=== PATIENT | male | born 1945 | race Caucasian/White ===

== ENCOUNTER 2016-09-22 08:09 | Inpatient (IN) | payer OTHER ==
--- NOTE | 2016-09-16 14:18 | HP ---
HISTORY AND PHYSICAL: DATE OF ADMISSION/SURGERY: 09/22/16 DATE OF OFFICE VISIT: 09/16/16 PROCEDURE: Left total hip replacement. CHIEF COMPLAINT: Left hip pain. HISTORY OF PRESENT ILLNESS: The patient is a very pleasant 71-year-old gentleman with a history of bilateral hip pain, left worse than right due to severe osteoarthritis, and has failed conservative treatments such as physical therapy, NSAIDs, and activity restrictions, and the patient has elected to undergo a left total hip replacement by Dr. Bernal on 09/22/16. PAST MEDICAL HISTORY: 1. Asthma. 2. Chronic back pain. 3. History of sciatica. 4. Generalized osteoarthritis. 5. Morbid obesity. 6. Hypertension. 7. Elevated cholesterol. 8. Obstructive sleep apnea. PAST SURGICAL HISTORY: 1. Bilateral knee surgery as a child, unknown surgical procedure. 2. Nasal surgery. 3. Tonsils and adenoids. MEDICATIONS: 1. Lyrica 50 mg, one tablet by mouth b.i.d. 2. Proventil 108 mcg/ACT, inhaled 4 puffs by mouth every 3 hours as needed for worsening asthma. 3. Multivitamin 1 tablet daily. 4. Cranberry supplementation 400 mg 1 tablet by mouth twice daily. 5. Coenzymes Q10, 30 mg 1 tablet by mouth daily. 6. Magnesium 500 mg 1 tablet by mouth daily. 7. Melatonin 10 mg 1 tablet by mouth at bedtime. 8. Tylenol 325 mg 1 tablet p.o. p.r.n. 9. Vitamin D3 1000 international units 1 tablet by mouth daily. 10. Magnesium 65 mg tablet 300 mg per day orally. 11. Pulmicort inhaler 180 mcg/ACT, 2 puffs twice daily. 12. Norvasc 5 mg p.o. daily. 13. Crestor 10 mg 1 tablet by mouth daily. 14. Potassium 99 mg once daily. 15. Aspirin 81 mg 1 tablet by mouth daily. 16. Protonix 20 mg 1 tablet by mouth p.r.n. 17. Celebrex 100 mg p.o. b.i.d. p.r.n. ALLERGIES: SULFA allergy. Denies any mineral allergy. FAMILY MEDICAL HISTORY: Mother with CHF. Father with diabetes type 2. SOCIAL HISTORY: No tobacco use. No alcohol use. 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 Living with his who is a nurse. REVIEW OF SYSTEMS: General: Negative for fevers, chills, night sweats. No difficulty with anesthesia other than having one episode of spinal headache, status post epidural. HEENT: Negative for headache, lightheadedness or syncopal episodes. Integument: Negative for abrasions, lesions, open wounds or sores. Cardiothoracic: Negative for chest pain, palpitations or edema. Positive for hypertension. Positive for elevated cholesterol. Pulmonary: Negative for shortness of breath, chronic cough or COPD. Positive for asthma, under control, recent exacerbation with sinus infection. GI: Negative for nausea, vomiting, constipation, diarrhea or GERD. : Negative of nocturia, urinary frequency or urgency. No history of UTI or kidney problems. Musculoskeletal: Positive for chronic back pain, positive for left hip pain. Neuro: Negative for paresthesias or numbness currently, does have a history sciatica in the past. No history of seizure, stroke or epilepsy. Endocrine: Negative for diabetes. Negative for thyroid disease. Hematologic: Negative for easy bruising, anemia or excessive bleeding. No history of DVTs or PEs. Infectious Disease: No history of MRSA, hepatitis C or HIV. PHYSICAL EXAMINATION GENERAL: Well appearing, in no acute distress. Alert and oriented x3. Appropriate mood and affect. VITAL SIGNS: Height 72 inches, weight 250 pounds, pulse 58, blood pressure 153/ 81, temperature 97.4. BMI 33.9. HEENT: Normocephalic, atraumatic. EOMI. PULMONARY: Lungs clear to auscultation bilaterally. No crackles, rhonchi or wheezes. CARDIAC: Regular rate and rhythm. No murmurs, gallops or rubs. No edema. Mild bradycardia. Positive S2 split. ABDOMEN: Soft, nontender, nondistended. Obese. Negative CVA tenderness bilaterally. MUSCULOSKELETAL: Mild edema of bilateral lower extremities, posterior tibial pulses 2+ bilaterally. Negative Michael sign bilaterally. Mildly antalgic gait favoring the left-hand side. NEUROLOGIC: Alert and oriented x3. Cranial nerves grossly intact. Sensation intact to light touch in bilateral lower extremities. DIAGNOSTIC STUDIES: Left hip and pelvic x-rays dated 05/18/16. IMPRESSION: The patient is a very pleasant 71-year-old gentleman who presents today for routine history and physical prior to undergoing an elective left total hip replacement. The patient was seen by Dr. Frederick in preoperative evaluation and his states that he has been cleared by him. He had lab work performed which is within normal limits, as well as a chest x-ray and EKG, as well as a nuclear stress test. The patient would like to recover at home if at all possible. Prescriptions for Coumadin, Percocet, and Colace were sent to the patient's pharmacy for postoperative pain and DVT management. Multiple questions were asked by the patient and his and they were all answered. He will follow up with us if any further questions arise. The patient has a CPAP at home and they will bring this to the hospital as well. NIKKI DOTSON [id number]/[facility] #: [id number] MTDGabriela
[~2016-09-22 08:09] MED LIST: Buffered Lidocaine 0.9% SYRIN* 5 ML/SYR SYRINGE INTRADERM ONE
[2016-09-22] MEDS ORDERED: ceFAZolin 2 GM PREMIX(*) 2 GM/50 ML BAG IVPB ONE (08:14)
[2016-09-22] MEDS ORDERED: Buffered Lidocaine 0.9% SYRIN* 5 ML/SYR SYRINGE ONE (08:14)
[2016-09-22] MEDS ORDERED: Levalbuterol 1.25MG/0.5ML NEB ONE (08:14)
[2016-09-22] MEDS ORDERED: Morphine PF AMP (0.5MG/ML)* 5 MG/10 ML AMP ONE (08:57)
[2016-09-22] MEDS ORDERED: Midazolam* 1 MG/ML 5 ML VIAL (5 MG) ONE ×2 (08:57→11:16)
[2016-09-22] MEDS ORDERED: Ondansetron INJ* 2 MG/ML VIAL ONE ×2 (08:57→13:41)
[2016-09-22] MEDS ORDERED: KETAMINE HCL* 50 MG/ML 10 ML VIAL ONE (08:57)
[2016-09-22] MEDS ORDERED: Propofol* 10 MG/ML 20 ML BTL IV PUSH ONE (08:57)
[2016-09-22] MEDS ORDERED: Bupivacaine 0.5% SDV PF* 30 ML VIAL ONE (08:58)
[2016-09-22] MEDS ORDERED: Phenylephrine INJ* 10 MG/ML 1 ML VIAL (10 MG) ONE (09:00)
[2016-09-22] MEDS ORDERED: Levalbuterol 0.63MG/3ML NEB INH ONE (09:08)
[2016-09-22] MEDS ORDERED: Glycopyrrolate IV* 0.2 MG/ML 1 ML VIAL ONE (10:31)
[2016-09-22] MEDS ORDERED: fentaNYL* 50 MCG/ML 2 ML VIAL (100 MCG VIAL) IV PRN (11:11)
[2016-09-22] MEDS ORDERED: Naloxone* 0.4 MG/ML 1 ML VIAL IV PRN (11:11)
[2016-09-22] MEDS ORDERED: Ondansetron INJ* 2 MG/ML VIAL IV PRN (11:11)
[2016-09-22] MEDS ORDERED: Nalbuphine* 20 MG/ML 1 ML VIAL IV PRN ×2 (11:11)
[2016-09-22] MEDS ORDERED: oxyCODONE/Acetamin 5/325 MG* TAB PO PRN ×2 (11:11)
[2016-09-22] MEDS ORDERED: Atropine 1MG/ML INJ* 1 ML VIAL ONE (11:35)
[2016-09-22] MEDS ORDERED: Ropivacaine* 300 MG in NS 0.9% 250 ML* 240 ML EPIDURAL SCH (12:00)
--- NOTE | 2016-09-22 12:16 | RAD ---
INDICATION: Portable crosstable lateral of the left hip during left total hip arthroplasty TECHNIQUE: Single AP view acquired intraoperatively of the left hip. FINDINGS: This limited radiographic view depicts the acetabular pole of the hip prosthesis to be anatomically aligned. The femoral shaft component is located in the proximal femoral medullary canal. The prosthetic femoral head has not yet been attached. IMPRESSION: Intraoperative findings as described above.
[2016-09-22] MEDS ORDERED: Acetaminophen TAB* 325 MG PO PRN (12:18)
[2016-09-22] MEDS ORDERED: Furosemide TAB* 20 MG PO PRN (12:37)
[2016-09-22] MEDS ORDERED: Diazepam TAB(*) 5 MG PO PRN (12:37)
[2016-09-22] MEDS ORDERED: Albuterol HFA INHALER* 8 gm MDI INH PRN ×2 (12:37)
[2016-09-22] MEDS ORDERED: Omeprazole CAP* 20 MG PO PRN (12:37)
--- NOTE | 2016-09-22 13:57 | RAD ---
HISTORY: Postop left hip arthroplasty COMPARISONS: None VIEWS: 3, Frontal view of the pelvis with frontal and frog-leg views of the left hip FINDINGS: BONE DENSITY: Normal. BONES: The patient is status post left hip arthroplasty. There is no hardware failure or osteolysis. JOINTS: The patient is status post left hip arthroplasty. There is osteoarthritis of the right hip and SI joints ALIGNMENT: There is no dislocation. SOFT TISSUES: Unremarkable. OTHER FINDINGS: Degenerative changes are noted of the spine IMPRESSION: STATUS POST LEFT HIP ARTHROPLASTY
[2016-09-22] MEDS ORDERED: Scopolamine 1.5 mg* PATCH ONE (14:13)
[2016-09-22] MEDS ORDERED: Nalbuphine* 20 MG/ML 1 ML VIAL ONE ×2 (14:13)
[2016-09-22] MEDS ORDERED: Scopolamine 1.5 mg* PATCH TRANSDERM SCH (15:00)
[2016-09-22] MEDS ORDERED: DiMENhydriNATE IV* 50 MG/ML VIAL IV PUSH PRN (15:58)
[2016-09-22] MEDS ORDERED: DiMENhydriNATE IV* 50 MG/ML VIAL ONE (16:01)
[2016-09-22] MEDS ORDERED: Warfarin TAB(*) 6 MG PO ONE (17:00)
[2016-09-22] MEDS ORDERED: Mometasone 220 MCG MDI INH PRN (18:00)
[2016-09-22] MEDS: Atorvastatin* 20 MG TAB PO SCH (18:06)
[2016-09-22] MEDS: ceFAZolin VIAL(*) 1 GM in NS 0.9% 50 ML* 50 ML IVPB SCH (18:08)
[2016-09-22] MEDS: Docusate CAP* 100 MG PO SCH (20:52)
[2016-09-22] MEDS ORDERED: Pregabalin CAP(*) 50 MG PO SCH (21:00)
[2016-09-22] MEDS ORDERED: NATURAL PRODUCTS PO SCH (21:00)
[2016-09-22] MEDS ORDERED: NON FORMULARY MED* (Melatonin [Melatonin] 10 MG) PO SCH (21:00)
--- NOTE | 2016-09-22 23:22 | CONS ---
CC: Dr. Bernal; Dr. Frederick* CONSULTATION REPORT: DATE OF CONSULT: 09/22/16 PRIMARY CARE PROVIDER: Dr. Frederick. ATTENDING PHYSICIAN WHILE IN THE HOSPITAL: Dr. oJvani Cortez (report dictated by Shree Madison NP). REASON FOR MEDICAL CONSULTATION: Medical management of comorbid medical conditions. REQUESTING PHYSICIAN FOR CONSULT: Dr. Bernal HISTORY OF PRESENT ILLNESS: Mr. Winters is a 71-year-old male patient who has been complaining of left hip pain for some time. He has been failing conservative therapy and management. He presented to the orthopedic services in the outpatient setting, was evaluated, and he was failing conservative therapy and it was felt that he would benefit from a total hip replacement, which he underwent today. He states that he is feeling well with the exception that he feels like the room is spinning and he feels very nauseous. He denies having any chest pain or shortness of breath. Denies having any abdominal pain. He states his pain in the left hip is controlled. He denies having any numbness or tingling in the lower extremities. He denies any shortness of breath. He does carry a history of hypertension, chronic back pain, asthma, SHANIQUE , and hyperlipidemia. Because of this, we were asked to evaluate in consult. He did have a stress test preoperatively, which was a normal stress test under the care of Dr. Riggs. PAST SURGICAL HISTORY: 1. He has had knee surgery. 2. Nasal surgery. 3. Tonsillectomy. HOME MEDICATIONS: According to the preop list include: 1. Celebrex 200 mg p.o. b.i.d. 2. Norvasc 5 mg a day. 3. Crestor 10 mg p.o. daily. 4. Lyrica 75 mg p.o. t.i.d. 5. Potassium 10 mEq p.o. daily. 6. Protonix 40 mg daily as needed. 7. Osteo Bi-Flex 2 tablets p.o. in the morning. 8. MidNite 1 p.o. at bedtime. 9. Melatonin 10 mg p.o. at bedtime. 10. Magnesium two tablets in the morning. 11. [place]ham one to two tablets every 6 hours as needed. 12. Lasix 20 mg daily as needed. 13. Colace 100 mg p.o. daily. 14. Valium half a tab to a tab at bedtime as needed. 15. Cranberry 400 mg daily. 16. Coenzyme Q10 50 mg daily. 17. Pulmicort 2 puffs inhaled b.i.d. 18. Aspirin 81 mg daily. 19. Ventolin 2 to 4 puffs every 3 hours as needed. 20. Tylenol 650 mg p.o. at bedtime. ALLERGIES TO MEDICATIONS: Include SULFA. FAMILY HISTORY: His mother had a history of CHF. Father had a history of diabetes. SOCIAL HISTORY: He does not smoke. He does not drink. Surrogate decision maker is his . PHYSICAL EXAM: Vital Signs: Blood pressure 136/74 with a pulse of 54, respirations 18, O2 sat 94%, temperature 96.8. General: At this time, Mr. Winters is a 71-year-old male patient, he is sitting in the PACU bed. He does not appear to be in any acute distress. HEENT: Head is atraumatic and normocephalic. Eyes: EOMs are intact. Sclerae anicteric and not pale. Throat : Oral mucosa appears to be moist. No oropharyngeal erythema. Neck: Supple. Heart: Sounds S1 and S2, regular rate and rhythm. No murmurs, rubs, or gallops were appreciated. Lungs: Clear to auscultation bilaterally. Abdomen: Bowel sounds were hypoactive and nontender. Extremities: Pulses are +2 throughout. He is unable to move the lower extremities given the fact he is in a hip adductor pillow, but distal CSM checks are intact bilaterally. Neurologic : The patient is awake. He is alert. He is oriented x3. His floral arranger are equal. He had no gross focal deficits. His skin is intact. He does have an incision to the left hip, which is covered with a dressing and it is clean, dry , and intact. DIAGNOSTIC STUDIES/LAB DATA: His labs preop revealed a WBC of 6.5, RBC of 5.44 , hemoglobin 16.5, hematocrit of 50, and platelets of 151. The INR is 1.0. Chemistries: Sodium of 140, potassium 4.3, chloride of 107, bicarb 28, BUN 23, creatinine 1.04, glucose of 97. Urine preop was obtained, which showed 1+ protein, present squamous epithelial cells, present hyaline cast. He did have a stress test done a couple of weeks ago, which showed no evidence of infarct or ischemia. He did have an EKG preop, showed a sinus bradycardia, rate of 50. No ST elevation or T-wave inversions. He had an echo, which showed an EF of 55% to 60%. He also had a Holter monitor, which did show him bradying down into the 40s at times, and he did have a preop chest x-ray, which showed no active disease. Old medical records were reviewed. ASSESSMENT AND PLAN: Mr. Winters is a 71-year-old male patient coming into the surgical service today to Orthopedics for an elective left total hip. We are asked to evaluate in consult. Recommendations at this point are: 1. Status post left total hip replacement. I will defer the management to Dr. Bernal and her team. 2. Hypertension. Continue the Norvasc. 3. Asthma. Continue p.r.n. inhalers. 4. Chronic back pain. He will on an epidural here and narcotics. I will continue these and just hold his Lyrica until discharge. 5. Arthritis. Continue his current medical regimen. 6. Hyperlipidemia. Continue his Crestor. 7. Obstructive sleep apnea. I would continue CPAP until his first [address] him on continuous pulse oximetry. 8. DVT prophylaxis. I will defer to the primary team. 9. Code status. Full code. 10. Fluids, electrolytes, and nutrition. I would recommend a heart healthy diet. TIME SPENT: Time spent on the consult was 60 minutes, greater than half the time was spent [id number] with the patient obtaining my history and physical, the other half the time was spent going over the plan of care with the patient and implementing the plan of care. I did discuss the plan of care with my attending, Dr. Cortez, who is in agreement. SHREE MADISON, PIYUSH [id number]/[facility] [place] #: [id number] MARIE
[2016-09-23] MEDS: ceFAZolin VIAL(*) 1 GM in NS 0.9% 50 ML* 50 ML IVPB SCH ×2 (01:42→09:40)
[2016-09-23] MEDS: oxyCODONE TAB* 5 MG TAB PO PRN ×3 (05:27→17:05)
[2016-09-23] MEDS ORDERED: Morphine INJ* 2 MG/ML 1 ML SYRINGE IV PRN (06:00)
[2016-09-23] MEDS ORDERED: diPHENhydraMINE IV* 50 MG/ML 1 ml VIAL (BENADRYL) IV PRN (06:00)
[2016-09-23 06:16] LABS: Hematocrit 39 % (42-52); Hemoglobin 13.4 g/dl (14.0-18.0); Mean Corpuscular HGB Conc 34 g/dl (31-36); Mean Corpuscular Hemoglobin 32 pg (27-31); Mean Corpuscular Volume 93 fL (80-94); Mean Platelet Volume 7 um3 (7.4-10.4); Red Blood Count 4.19 10^6/ul (4.0-5.4); Red Cell Distribution Width 14 % (10.5-15); White Blood Count 9.6 10^3/ul (3.5-10.8)
[2016-09-23 06:31] LABS: BUN/Creatinine Ratio 30.6 (8-20); Calcium 8.6 mg/dL (8.6-10.3); EGFR African American 114.6 (>60); EGFR Non-African American 89.1 (>60); Potassium 4.3 mmol/L (3.5-5.0)
--- NOTE | 2016-09-23 06:50 | PN ---
Progress Note - Progress Note Date of Service: 09/23/16 SOAP: Subjective: Pt. is alert, pain well controlled. Objective: LLE - dressing c/d/i. thigh soft, distally +df/pf, full sens lt, 2+ DP pulse. Vital Signs: Temp Pulse Resp BP Pulse Ox 98.3 F 63 18 115/62 99 09/23/16 04:03 09/23/16 04:03 09/23/16 05:27 09/23/16 04:03 09/23/16 04:03 Laboratory Results - last 24 hr 09/23/16 09/23/16 09/23/16 05:52 05:52 05:52 WBC 9.6 RBC 4.19 Hgb 13.4 L Hct 39 L MCV 93 MCH 32 H MCHC 34 RDW 14 Plt Count 122 L MPV 7 L Neut % (Auto) 84.0 H Lymph % (Auto) 6.4 L Hidalgo % (Auto) 9.0 Eos % (Auto) 0.5 Baso % (Auto) 0.1 Absolute Neuts (auto) 8.1 H Absolute Lymphs (auto) 0.6 L Absolute Monos (auto) 0.9 H Absolute Eos (auto) 0.1 Absolute Basos (auto) 0 Absolute Nucleated RBC 0 Nucleated RBC % 0 INR (Anticoag Therapy) 1.14 H Sodium 135 Potassium 4.3 Chloride 105 Carbon Dioxide 27 Anion Gap 3 BUN 26 H Creatinine 0.85 Est GFR ( Amer) 114.6 Est GFR (Non-Af Amer) 89.1 BUN/Creatinine Ratio 30.6 H Glucose 129 H Calcium 8.6 Assessment: 71 yo M pod 1 s/p LTHA Plan: wbat with post hip precautions pt/ot 8 mg coumadin tonight, lovenox this AM plan d/c to home with services.
[2016-09-23] MEDS: Docusate CAP* 100 MG PO SCH ×2 (08:35→20:51)
[2016-09-23] MEDS: amLODIPine TAB* 5 MG PO SCH (08:35)
[2016-09-23] MEDS ORDERED: COENZYME Q10 30 MG PO SCH (09:00)
[2016-09-23] MEDS ORDERED: POTASSIUM CHLORIDE 10 MEQ PO SCH (09:00)
[2016-09-23] MEDS ORDERED: NATURAL PRODUCTS PO SCH (09:00)
[2016-09-23] MEDS ORDERED: CRANBERRY PO SCH (09:00)
[2016-09-23] MEDS ORDERED: Docusate CAP* 100 MG PO SCH (09:00)
[2016-09-23] MEDS ORDERED: oxyCODONE/Acetamin 5/325 MG* TAB PO PRN (11:46)
[2016-09-23] MEDS: oxyCODONE/Acetamin 5/325 MG* TAB PO PRN ×2 (13:01→20:09)
[2016-09-23] MEDS ORDERED: Enoxaparin(*) 30 MG/0.3 ML SYR SUBCUT SCH (15:00)
--- NOTE | 2016-09-23 15:08 | PN ---
Subjective Date of Service: 09/23/16 Interval History: Patient seen and examined at bedside. He is in good spirits, reporting that he has been up with PT. Denies fever/chills, CP, SOB, n/v. Decreased appetite but he feels like he's taken in enough food at this point. Reports adequate pain control with current medication regimen. Family History: Unchanged from Admission Social History: Unchanged from Admission Past Medical History: Unchanged from Admission Objective Active Medications: Acetaminophen (Tylenol Tab*) 650 mg PO Q4H PRN PRN Reason: TEMP > 100 or PAIN Albuterol (Ventolin Hfa Inhaler*) 1 puff INH Q4H PRN PRN Reason: SOB/WHEEZING Amlodipine Besylate (Norvasc Tab*) 5 mg PO QAM [facility] Last Admin: 09/23/16 08:35 Dose: 5 mg Atorvastatin Calcium (Lipitor*) 20 mg PO QPM MELLISSA PRN Reason: Protocol Last Admin: 09/22/16 18:06 Dose: 20 mg Diphenhydramine HCl (Benadryl Iv*) 25 mg IV Q6H PRN PRN Reason: itching Docusate Sodium (Colace Cap*) 100 mg PO BID [facility] Last Admin: 09/23/16 08:35 Dose: 100 mg Enoxaparin Sodium (Lovenox(*)) 30 mg SUBCUT Q24H [facility] Last Admin: 09/23/16 14:33 Dose: 30 mg Lactated Ringer's (Lactated Ringers 1000 Ml Bag*) 1,000 mls @ 100 mls/hr IV PER RATE [facility] Last Admin: 09/23/16 12:07 Dose: 100 mls/hr Mometasone Furoate (Asmanex 220 Mcg Mdi *) 2 puff INH QPM PRN PRN Reason: SOB/WHEEZING Morphine Sulfate (Morphine Inj (Syringe)*) 2 mg IV Q2H PRN PRN Reason: PAIN Omeprazole (Prilosec Cap*) 20 mg PO DAILY PRN PRN Reason: reflux Oxycodone HCl (Roxycodone Tab*) 10 mg PO Q4H PRN PRN Reason: PAIN Last Admin: 09/23/16 09:43 Dose: 10 mg Oxycodone/Acetaminophen (Percocet 5/325 Tab*) 1 tab PO Q3H PRN PRN Reason: PAIN - MODERATE Oxycodone/Acetaminophen (Percocet 5/325 Tab*) 2 tab PO Q3H PRN PRN Reason: PAIN - MODERATE Last Admin: 09/23/16 13:01 Dose: 2 tab Pharmacy Profile Note (Scopolomine Patch Remove*) 1 note PATCH OFF 1500 ONE Stop: 09/25/16 15:01 Pharmacy Profile Note (Coumadin Daily Reminder*) 1 note FOLLOW UP 1700 MELLISSA Last Admin: 09/22/16 18:08 Dose: 1 note Warfarin Sodium (Coumadin Tab(*)) 8 mg PO ONCE@1700 ONE PRN Reason: Protocol Stop: 09/23/16 17:01 Vital Signs 09/22/16 09/22/16 09/22/16 15:15 16:45 17:21 Temperature 96.4 F 97.6 F Pulse Rate 61 61 57 Respiratory 16 15 18 Rate Blood Pressure 131/71 127/81 135/67 (mmHg) O2 Sat by Pulse 95 100 99 Oximetry 09/22/16 09/22/16 09/22/16 18:11 19:26 20:26 Temperature 97.7 F Pulse Rate 61 Respiratory 16 13 14 Rate Blood Pressure 122/72 (mmHg) O2 Sat by Pulse 97 Oximetry 09/22/16 09/22/16 09/22/16 20:36 20:46 21:00 Temperature Pulse Rate Respiratory 14 14 15 Rate Blood Pressure (mmHg) O2 Sat by Pulse 97 94 Oximetry 09/22/16 09/22/16 09/22/16 21:20 22:06 23:59 Temperature 98.3 F 98.3 F Pulse Rate 62 62 Respiratory 15 16 Rate Blood Pressure 126/72 113/69 (mmHg) O2 Sat by Pulse 97 91 98 Oximetry 09/23/16 09/23/16 09/23/16 04:03 05:27 07:27 Temperature 98.3 F Pulse Rate 63 Respiratory 16 18 16 Rate Blood Pressure 115/62 (mmHg) O2 Sat by Pulse 99 Oximetry 09/23/16 09/23/16 09/23/16 07:37 08:00 09:43 Temperature 98.1 F Pulse Rate 65 Respiratory 17 18 18 Rate Blood Pressure 118/64 (mmHg) O2 Sat by Pulse 96 96 Oximetry 09/23/16 09/23/16 09/23/16 11:34 11:43 13:01 Temperature 98.0 F Pulse Rate 71 Respiratory 16 18 18 Rate Blood Pressure 130/69 (mmHg) O2 Sat by Pulse 93 Oximetry 09/23/16 14:38 Temperature Pulse Rate Respiratory 18 Rate Blood Pressure (mmHg) O2 Sat by Pulse Oximetry Oxygen Devices in Use Now: None Appearance: Older male patient, reclined in bed, NAD Eyes: No Scleral Icterus Ears/Nose/Mouth/Throat: Mucous Membranes Moist Neck: NL Appearance and Movements; NL JVP Respiratory: Symmetrical Chest Expansion and Respiratory Effort, Clear to Auscultation Cardiovascular: NL Sounds; No Murmurs; No JVD, RRR Extremities: No Edema, - - left hip dressing c/d/i, distal pulses 2+, cap refill brisk Neurological: Alert and Oriented x 3, NL Muscle Strength and Tone Lines/Tubes/Other Access: Clean, Dry and Intact Peripheral IV Nutrition: Taking PO's Result Diagrams: 09/23/16 05:52 09/23/16 05:52 Assess/Plan/Problems-Billing Assessment: Mr. Winters is a 71 yo male with a PMH of HTN, asthma, chronic back pain, OA, HLD, and SHANIQUE who was admitted on 09/22 for an elective left total hip replacement. - Patient Problems (1) Status post total replacement of left hip Code(s): Z96.642 - PRESENCE OF LEFT ARTIFICIAL HIP JOINT Comment: POD #1, management per ortho HH stable PT/OT Pain management (2) Hypertension Code(s): I10 - ESSENTIAL (PRIMARY) HYPERTENSION Comment: Normotensive Continue amlodipine. (3) HLD (hyperlipidemia) Code(s): E78.5 - HYPERLIPIDEMIA, UNSPECIFIED Comment: Continue atorvastatin. (4) SHANIQUE (obstructive sleep apnea) Code(s): G47.33 - OBSTRUCTIVE SLEEP APNEA (ADULT) (PEDIATRIC) Comment: Continue to offer hospital CPAP. (5) Chronic back pain Code(s): M54.9 - DORSALGIA, UNSPECIFIED; G89.29 - OTHER CHRONIC PAIN Comment: Currently managed with prn medications Resume home pregabalin Continue to hold celebrex (6) Asthma Code(s): J45.909 - UNSPECIFIED ASTHMA, UNCOMPLICATED Comment: Continue prn albuterol (7) Osteoarthritis Code(s): M19.90 - UNSPECIFIED OSTEOARTHRITIS, UNSPECIFIED SITE Comment: Continue supportive care and prn pain medications. (8) DVT prophylaxis Comment: Per ortho Warfarin and Lovenox Status and Disposition: Inpatient admission. Dispo per ortho. Hospitalist co-medical management.
--- NOTE | 2016-09-23 16:12 | OP ---
DATE OF OPERATION: 09/22/16 - ROOM #347 DATE OF : 47 SURGEON: Shirley Bernal MD ASSIGNMENT MANAGER: NIKKI Narvaez. Ms. Oliva did help throughout the procedure with preparation of the leg, wound retraction, manipulation of the hip, and wound closure. ANESTHESIOLOGIST: Dr. Cristina. ANESTHESIA: Spinal epidural. PRE-OPERATIVE DIAGNOSIS: Severe end-stage degenerative osteoarthritis of the left hip joint. POST-OPERATIVE DIAGNOSIS: Severe end-stage degenerative osteoarthritis of the left hip joint. OPERATIVE PROCEDURE: Left total hip arthroplasty. HARDWARE USED: This is uncemented [place] total hip hardware. For the acetabular cup, a Tritanium hemispherical cluster hole shell 56C. Two 25 mm cancellous bone screws. For the insert, a trident X3 0-degree polyethylene insert 40E. For the stem, an Accolade TMZF size 4.5 with a 127-degree neck. For the head, a 40+ 0 Biolox delta ceramic V40 femoral head and sleeve. ESTIMATED BLOOD LOSS: 300 cc. COMPLICATIONS: None. SPECIMEN: Femoral head and acetabular bone reaming sent to pathology. BRIEF HISTORY/INDICATION: Mr. Winters is a 71-year-old gentleman with several months of increasingly severe left hip pain. He failed conservative treatment with anti-inflammatories, pain medication, intraarticular injection and physical therapy. Radiographs confirmed end-stage arthritis with [id number] contact. He elected to undergo left total hip arthroplasty due to continued pain and decreased quality of life. Informed consent was obtained from the patient. He understood the risks of surgery included but were not limited to bleeding, infection, damage to nearby structures, continued pain, need for further surgery, intraoperative fracture, nerve palsy, hardware failure or loosening, dislocation, leg length discrepancy, stroke, heart attack, blood clot , and . He wished to proceed. INTRAOPERATIVE FINDINGS: Intraoperatively, the patient was noted to have severe end-stage arthritis with complete loss of cartilage along the femoral head of acetabulum. DESCRIPTION OF PROCEDURE: Mr. Winters was identified in the preanesthesia unit. His left lower extremity was marked as the correct operative site. Informed consent was signed and placed in the chart. The patient was taken to the operating room and placed under spinal epidural anesthesia. A Hernandez catheter was placed. The patient was placed in the right lateral decubitus position on the pegboard. All bony prominences were well padded. Left lower extremity was prepped and draped in the usual sterile fashion. Preop time-out was made to correctly identify the patient's side and site. Appropriate perioperative antibiotics were given within 1 hour of incision. A 12-cm posterior hip incision was made with a 10-blade and carried down to the lateral fascial layer. Lateral fascial layer was incised in line with the skin incision. A Charnley retractor was placed and the posterior aspect of the hip joint was visualized. The piriformis and conjoint tendons were identified. These were elevated off the posterolateral femur using electrocautery and tagged with two #5 Ethibond. Next, electrocautery was used to make a standard capsular flap and this was also tagged with two #5 Ethibond. The hip was carefully dislocated. Lesser troch to center of the femoral head measured 58 mm. Oscillating saw was used to make the appropriate femoral neck cut. The femoral head was sent to Pathology. The femur was carefully retracted anteriorly. After appropriate placement of retractors, the acetabulum was easily visualized. A long-handle knife was used to sharply remove any acetabular labrum. The acetabulum was sequentially reamed up to a size 55. A good bleeding bone bed was obtained. It was noted that the acetabulum was slightly dysplastic with a shallow cup and minimal posterior coverage. Size 55 trial had good fit. The Tritanium hemispherical cluster hole shell 56C was chosen. This was impacted into the acetabulum without difficulty. Stability of the cup was excellent. Anteversion and abduction angle were appropriate. Two 25-mm screws were placed in the superoposterior quadrant for extra stability. A Trident X3 0-degree liner 40E was chosen. This was impacted into the acetabular cup without difficulty. Stability of the liner was checked and rechecked and noted to be stable. Next, attention was turned to preparation of the proximal femur. A canal finder was used to enter the proximal femur. The femur was sequentially broached up to a size 4.5. Size 4.5 broach had excellent fit and appropriate anteversion. A trial 127 neck was placed as well as a 40+ 0 femoral head trial. Lesser troch to center of the femoral head measured exactly 58 mm. The hip was reduced and taken through a range of motion. The hip was stable in all positions. There was appropriate soft tissue tension and leg length. The hip was carefully dislocated. All trials were removed. Final implant chosen was an Accolade TMZF size 4.5 with a 127-degree neck angle. This was impacted into the femoral canal without difficulty. The stem was quite stable with good anteversion. A 40+ 0 ceramic Biolox femoral head was chosen with an universal adaptor sleeve. This was impacted onto the femoral neck without difficulty. The hip was reduced and taken through range of motion. The hip was stable in all positions with good soft tissue tension. The hip was copiously irrigated with sterile saline. Previously tagged capsule and tendons were reapproximated to the posterolateral femur through 2 trochanteric drill holes. The lateral fascial layer was closed using interrupted #1 Vicryl. The rest of the incision was closed in a layered fashion using 0 and 2-0 Vicryl. The skin was closed using running 3-0 Monocryl and Dermabond. Sterile Adaptic, 4x4's, and paper tape were used to cover the incision. The patient's anesthesia was reversed without difficulty. He was taken to the PACU in stable condition. Intended weight bearing will be weightbearing as tolerated with posterior hip precautions. Intended DVT prophylaxis will be Coumadin with a Lovenox bridge. [id number]/[facility] #: [id number] MARIE
[2016-09-23] MEDS ORDERED: Warfarin TAB(*) 4 MG PO ONE (17:00)
[2016-09-23] MEDS: Atorvastatin* 20 MG TAB PO SCH (17:05)
[2016-09-23] MEDS: Pregabalin CAP(*) 25 MG PO SCH (20:51)
[2016-09-23] MEDS: Moisturizing CREAM* 113 GM JAR TOPICAL SCH (20:51)
[2016-09-24] MEDS: oxyCODONE TAB* 5 MG TAB PO PRN ×2 (07:06→12:20)
[2016-09-24] MEDS: Pregabalin CAP(*) 25 MG PO SCH (08:29)
[2016-09-24] MEDS: amLODIPine TAB* 5 MG PO SCH (08:30)
[2016-09-24] MEDS: Docusate CAP* 100 MG PO SCH (08:30)
[2016-09-24 08:32] LABS: Hematocrit 37 % (42-52); Hemoglobin 12.6 g/dl (14.0-18.0)
--- NOTE | 2016-09-24 08:44 | PN ---
Progress Note - Progress Note Date of Service: 09/24/16 SOAP: Subjective: Pt. is alert, nad. Objective: LLE - dressing changed, inc c/d/i. distally nvi. 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 restart at 4 mg on 09/25 d/c to home today.
[2016-09-24] MEDS: Moisturizing CREAM* 113 GM JAR TOPICAL SCH ×2 (08:59→13:55)
[2016-09-24] MEDS ORDERED: Magnesium Hydroxide LIQ* 30 ML UDC PO PRN (11:19)
[2016-09-24 11:42] VITALS: BP 138/66
--- NOTE | 2016-09-24 14:28 | DS ---
DATE OF ADMISSION: 09/22/2016. DATE OF DISCHARGE: 09/24/2016. SURGEON: Dr. Shirley Bernal. PRINCIPAL DIAGNOSIS: Severe end-stage osteoarthritis of the left hip. DISCHARGE DIAGNOSIS: Severe end-stage osteoarthritis of the left hip. HISTORY OF PRESENT ILLNESS: Mr. Winters is a 71-year-old gentleman with complaints of left hip pain secondary to severe end-stage osteoarthritis. He had failed conservative management and elected to proceed with a left total hip arthroplasty. HOSPITAL COURSE: Mr. Winters is a 71-year-old gentleman. [facility] and underwent a left total hip arthroplasty. He tolerated the procedure well with n o complications. Postoperatively, he was placed on Lovenox and Coumadin for DVT prophylaxis. On pos top day one, his H and H was 13 and 39, and on postop day his H and H was 12.6 and 37. His INR went from 1.14 on postop day one to 2.27 on postop day two. His hospital course was unremarkable and at the time of discharge on 09/24/2016 he was afebrile and ambulating well. His wound was clean, dry and healing well. DISCHARGE MEDICATIONS: 1. Ventolin inhaler. 2. Norvasc 5 mg once a day. 3. Lipitor 20 mg once a day. 4. Colace 100 mg twice a day as needed. 5. Asmanex 220 mcg two puffs at night as needed. 6. Omeprazole 20 mg daily. 7. Percocet 5/325 one to two tabs every 4 to 6 hours. 8. Coumadin 2 mg. 9. Lyrica 75 mg twice a day. PHYSICAL EXAMINATION: Upon discharge, he was afebrile. His wound was clean, dry and healing well. He was ambulating well. His lower extremity muscle group strengths were intact at 5/5. He has 2+ dorsalis pedis pulses and intact sensation. DISCHARGE INSTRUCTIONS: Mr. Witners was discharged home in stable condition. He was given a prescr iption for Percocet 5/325. He can take one to two pills every four to six hours as needed for pain. He was also asked to continue Coumadin nightly at 5:00 p.m. for DVT prophylaxis. His last INR was 2.27. He was asked to take 2 mg tonight, 2 mg Wednesday night, 4 mg Wednesday night and 4 mg Wednesday ni ght. He will have his INR rechecked on Wednesday with [facility]. He is weightbearing as tolerated. He will see Dr. Bernal back in the clinic in two weeks. We have asked him to call our office sooner if he wheeler s any questions or concerns. NIKKI ANN [id number]/[facility] #: [id number]
[2016-09-25] MEDS ORDERED: Scopolomine PATCH Remove* 1 NOTE MISC PATCH OFF ONE (15:00)
== END 2016-09-24 14:30 | disposition home health service (06) | DRG 301 ==
LOC: AA 08:09 → SSU 15:16
PROVIDERS: ADMIT Orthopaedic Surgery Adult Reconstructive Orthopaedic Surgery; ATTEND Orthopaedic Surgery Adult Reconstructive Orthopaedic Surgery
PROC: 0SRB04A Replacement of Left Hip Joint with Ceramic on Polyethylene Synthetic Substitute, Uncemented, Open Approach (ICD-10-PCS; principal; 2016-09-22 10:00)
DX: M16.12 Unilateral primary osteoarthritis, left hip (principal); E66.01 Morbid (severe) obesity due to excess calories; R00.1 Bradycardia, unspecified; G89.29 Other chronic pain; M54.9 Dorsalgia, unspecified; J45.909 Unspecified asthma, uncomplicated; M54.30 Sciatica, unspecified side; M19.90 Unspecified osteoarthritis, unspecified site; E78.5 Hyperlipidemia, unspecified; I10 Essential (primary) hypertension; G47.33 Obstructive sleep apnea (adult) (pediatric); Z68.34 Body mass index [BMI] 34.0-34.9, adult; Z82.49 Family history of ischemic heart disease and other diseases of the circulatory system; Z83.3 Family history of diabetes mellitus; Z88.2 Allergy status to sulfonamides; Q65.89 Other specified congenital deformities of hip
CPT/HCPCS: 36415; 62323; 80048; 85014; 85018; 85025; 85610; A9270-GY; C1713; C1776; J0461; J0690; J1240; J1650; J2250; J2300; J2405; J2704; J2795